=== PATIENT | male | born 1960 ===

== ENCOUNTER 2019-12-25 01:51 | Observation (INO) ==
[2019-12-25] MEDS ORDERED: ALBUTEROL/IPRATROPIUM 3 ML NEB RESP TX PRN (04:19)
[2019-12-25] MEDS ORDERED: ALUMINUM/MAGNES/SIMETH MAX STR 30 ML UDCUP PO PRN (04:19)
[2019-12-25] MEDS ORDERED: diphenhydrAMINE CAP 25 MG CAPSULE PO PRN (04:19)
[2019-12-25] MEDS ORDERED: NICOTINE 21 MG/24 HR PATCH TRANSDERM PRN (04:19)
[2019-12-25] MEDS ORDERED: ACETAMINOPHEN 325 MG TABLET PO PRN (04:19)
[2019-12-25] MEDS ORDERED: hydrALAZINE 20 MG/1 ML VIAL IV PRN (04:19)
[2019-12-25] MEDS ORDERED: ONDANSETRON 4 MG/2 ML VIAL IV PRN (04:19)
[2019-12-25 05:08] LABS: Hematocrit 43.8 VOL% (42.0-52.0); Hemoglobin 14.8 GM/DL (14.0-18.0); Mean Corpuscular Volume 91.4 FL (87-102); Red Blood Count 4.79 MC/CUMM (3.8-5.5)
[2019-12-25 05:09] LABS: Basophils # 0.1 10*3/uL (0.0-0.2); Basophils % 0.9 % (0.0-0.8); Eosinophils # 0.2 10*3/uL (0.0-0.87); Eosinophils % 2.9 % (0.00-10.9); Immature Granulocytes % 0.4 %; Immature Granulocytes Absolute 0.03 #; Lymphocytes # 2.3 10*3/uL (1.4-4.0); Lymphocytes % 33.2 % (21.2-54.2); Mean Corpuscular HGB Conc 33.8 GM/DL (32-36); Mean Platelet Volume 9.7 FL (9.6-12.0); Monocytes % 6.3 % (1.7-12.7); Neutrophils % 56.3 % (38.7-73.9); Platelet Count 232 T/CUMM (130-400); Red Cell Distribution Width 13.9 % (9.3-17.3)
[2019-12-25 05:38] LABS: Albumin 3.5 G/DL (3.4-5.0); Calcium 8.8 MG/DL (8.5-10.1); Osmolality,Calculated 283.1 MOS/KG (273-304); Risk Ratio 3.8; Thyroid Stimulating Hormone 2.11 uIU/ml (0.358-3.74); Total Protein 6.5 G/DL (6.4-8.3)
[2019-12-25] MEDS ORDERED: TAMSULOSIN 0.4 MG CAPSULE PO SCH (09:00)
[2019-12-25] MEDS ORDERED: VALSARTAN 80 MG TABLET PO SCH (09:00)
[2019-12-25] MEDS ORDERED: ASPIRIN 325 MG TABLET PO SCH (09:00)
[2019-12-25] MEDS ORDERED: ATORVASTATIN 40 MG TABLET PO SCH (09:00)
[2019-12-25 12:47] VITALS: BP 152/99
[2019-12-25 15:25] LABS: Barbiturates Screen,Urine Negative (Negative); Benzodiazepines Screen,Urine Negative (Negative); Cannabinoid Screen,Urine Negative (Negative); Opiate Screen,Urine Negative (Negative); Phencyclidine Screen,Urine Negative (Negative)
== END 2019-12-25 13:45 | disposition home or self-care (01) ==
LOC: N.4E → SUPCPDRO 03:21 → SUATTDRO 03:21
PROVIDERS: ADMIT Internal Medicine; ATTEND Internal Medicine